=== PATIENT | female | born 1930 | race African-American/Black ===

== ENCOUNTER 2017-08-07 12:29 | Inpatient (IN) | payer MEDICARE, BC ==
[~2017-08-07] VITALS: Ht 165.1 cm; Wt 70.3 kg
[~2017-08-07 12:29] MED LIST: ALLO100T PO; AMLO1TAB64 PO; ASCO-339 PO; ASPI-1159 PO; ATEN50TA PO; CHOL500010 PO; DOCU-150 PO; FURO-151 PO; GLIM2TAB2 PO; HYDR500C18 PO; METFORMIN PO; OMEG-118 PO; POTA10TA11 PO; SIMV20TA6 PO; VITA400C19 PO; ZOLP10TA6 PO
[2017-08-07 13:37] LABS: BASOPHILS % 0.9 % (0.0-2.0); EOSINOPHILS % 1.2 % (0.0-5.0); HEMATOCRIT. 22.4 % (36.0-48.0); HEMOGLOBIN. 7.5 g/dL (12.0-16.0); LYMPHOCYTES % 10.3 % (20.0-50.0); MEAN CORPUSCULAR HEMOGLOBIN 30.4 pg (28.0-32.0); MEAN CORPUSCULAR VOLUME 90.6 fL (81.0-99.0); MEAN PLATELET VOLUME 8.3 fl (7.4-10.4); MONOCYTES % 8.3 % (2.0-8.0); NEUTROPHILS % 79.3 % (40.0-76.0); PLATELET 716 x1000/uL (130-400); RED BLOOD CELL COUNT 2.47 mill/uL (4.2-5.4); RED CELL DISTRIBUTION WIDTH 20.9 % (11.6-14.6)
[2017-08-07 13:47] LABS: PARTIAL THROMBOPLASTIN TIME 25.9 sec (23.4-31.0); PROTHROMBIN TIME 10.8 sec (9.4-11.6)
[2017-08-07 13:59] LABS: CARBON DIOXIDE 25 mEq/L (21-32); CHLORIDE 104 mEq/L (98-107); CREATINE KINASE 63 IU/L (26-192); CREATINE KINASE MB FRACTION 2.3 ng/mL (0.5-3.6); TOTAL IRON BINDING CAPACITY 199 ug/dL (250-450)
[2017-08-07 14:01] LABS: TROPONIN I 0.77 ng/mL (0.00-0.04)
[2017-08-07] MEDS ORDERED: FUROSEMIDE 40MG/4ML VIAL IVP ONE (14:15)
[2017-08-07] MEDS ORDERED: PANTOPRAZOLE SODIUM 40 MG/VIAL IV NR (17:30)
[2017-08-07 21:16] VITALS: BP 140/47
[2017-08-07 21:50] VITALS: BP 140/47
[2017-08-07] MEDS ORDERED: ZOLPIDEM TARTRATE 5MG TABLET PO PRN (22:30)
[2017-08-07] MEDS ORDERED: TRAMADOL 50MG TABLET PO PRN (22:30)
[2017-08-07] MEDS ORDERED: ATORVASTATIN CALCIUM 10MG TABLET PO SCH ×2 (22:30→23:07)
[2017-08-07] MEDS ORDERED: SODIUM CHLORIDE 0.9% 1,000 ML IV SCH (22:30)
[2017-08-07] MEDS ORDERED: MEDICATION NOT ON FORMULARY EA (Simvastatin 20 MG) PO SCH (23:00)
[2017-08-07 23:56] VITALS: BP 130/59
[2017-08-08] VITALS (10 sets, daily range): BP systolic 130–153; BP diastolic 55–65
[2017-08-08] MEDS ORDERED: NITR0.4T49 SL (00:04)
[2017-08-08] MEDS ORDERED: FAMOTIDINE PO (00:07)
[2017-08-08] MEDS ORDERED: NEBI5TAB3 PO (00:09)
[2017-08-08] MEDS ORDERED: METFORMIN HCL 500MG TABLET PO SCH (07:40)
[2017-08-08] MEDS ORDERED: POTASSIUM CHLORIDE 10MEQ TABLET SR PO SCH (09:00)
[2017-08-08] MEDS ORDERED: AMLODIPINE 5MG TABLET PO SCH ×2 (09:00)
[2017-08-08] MEDS ORDERED: ATENOLOL 50 MG TABLET PO SCH (09:00)
[2017-08-08] MEDS ORDERED: MEDICATION NOT ON FORMULARY EA (Potassium Chloride (Klor-Con 10) 10 MEQ) PO SCH (09:00)
[2017-08-08] MEDS ORDERED: FUROSEMIDE 40MG/4ML VIAL IVP SCH (09:00)
[2017-08-08] MEDS ORDERED: PANTOPRAZOLE SODIUM 40 MG/VIAL IV SCH (09:00)
[2017-08-08] MEDS ORDERED: FAMOTIDINE 20MG TABLET PO SCH ×2 (09:00)
[2017-08-08] MEDS ORDERED: LOSARTAN POTASSIUM 100 MG TABLET PO SCH (09:00)
[2017-08-08] MEDS ORDERED: BISACODYL 10MG SUPP PR NR (09:45)
[2017-08-08] MEDS ORDERED: DOCUSATE SODIUM 100MG CAPSULE PO SCH (09:45)
[2017-08-08 10:09] LABS: BASOPHILS % 0.6 % (0.0-2.0); EOSINOPHILS % 1.5 % (0.0-5.0); HEMATOCRIT. 33.2 % (36.0-48.0); HEMOGLOBIN. 11.2 g/dL (12.0-16.0); LYMPHOCYTES % 7.7 % (20.0-50.0); MEAN CORPUSCULAR HEMOGLOBIN 30.1 pg (28.0-32.0); MEAN CORPUSCULAR VOLUME 89.4 fL (81.0-99.0); MEAN PLATELET VOLUME 8.5 fl (7.4-10.4); MONOCYTES % 8.1 % (2.0-8.0); NEUTROPHILS % 82.1 % (40.0-76.0); PLATELET 589 x1000/uL (130-400); RED BLOOD CELL COUNT 3.72 mill/uL (4.2-5.4); RED CELL DISTRIBUTION WIDTH 18.7 % (11.6-14.6)
[2017-08-08 10:19] LABS: CARBON DIOXIDE 27 mEq/L (21-32); CHLORIDE 101 mEq/L (98-107)
== END 2017-08-08 15:00 | disposition home or self-care (01) | DRG 812 ==
LOC: ER 12:29 → EDBEDREQSVC 13:33 → EDBEDREQ 13:33 → 8WST 14:30 → EDBEDREQ 14:34 → ENRESERV 16:50
PROVIDERS: ADMIT Specialist; ATTEND Specialist
PROC: 30233N1 Transfusion of Nonautologous Red Blood Cells into Peripheral Vein, Percutaneous Approach (ICD-10-PCS; principal; 2017-08-07)
DX: D64.89 Other specified anemias (principal); E11.51 Type 2 diabetes mellitus with diabetic peripheral angiopathy without gangrene; I11.0 Hypertensive heart disease with heart failure; I50.9 Heart failure, unspecified; E78.5 Hyperlipidemia, unspecified; K21.9 Gastro-esophageal reflux disease without esophagitis; K59.00 Constipation, unspecified; M10.9 Gout, unspecified; Z90.710 Acquired absence of both cervix and uterus; Z98.42 Cataract extraction status, left eye; I25.5 Ischemic cardiomyopathy; Z90.49 Acquired absence of other specified parts of digestive tract; D47.3 Essential (hemorrhagic) thrombocythemia; I25.10 Atherosclerotic heart disease of native coronary artery without angina pectoris; Z79.84 Long term (current) use of oral hypoglycemic drugs
CPT/HCPCS: 36415; 71010; 80053; 82550; 82553; 82962; 83540; 83550; 83690; 83880; 84443; 84484; 85025; 85044; 85610; 85730; 86850; 86900; 86920; 93005; 96374; 99291; C9113; J1940; J7050; P9016

== ENCOUNTER 2017-10-05 15:51 | Observation (INO) | payer MEDICARE, BC ==
[~2017-10-05] VITALS: Ht 162.6 cm; Wt 71.8 kg
[~2017-10-05 15:51] MED LIST changes: +FAMOTIDINE PO; +NEBI5TAB3 PO; +NITR0.4T49 SL
[2017-10-05 16:15] VITALS: BP 137/55
[2017-10-05 17:00] VITALS: BP 137/55
[2017-10-05] MEDS ORDERED: SODIUM CHLORIDE 0.9% 1,000 ML IV SCH (18:00)
[2017-10-05] MEDS ORDERED: MEDICATION NOT ON FORMULARY EA (Zolpidem Tartrate 10 MG) PO SCH (18:15)
[2017-10-05] MEDS ORDERED: ZOLPIDEM TARTRATE 5MG TABLET PO PRN (18:15)
[2017-10-05] MEDS ORDERED: NITROGLYCERIN 0.4MG TABLET SL SL PRN (18:15)
[2017-10-05 19:48] LABS: BASOPHILS % 0.8 % (0.0-2.0); EOSINOPHILS % 1.8 % (0.0-5.0); HEMATOCRIT. 21.2 % (36.0-48.0); HEMOGLOBIN. 7.1 g/dL (12.0-16.0); LYMPHOCYTES % 10.4 % (20.0-50.0); MEAN CORPUSCULAR VOLUME 89.6 fL (81.0-99.0); MEAN PLATELET VOLUME 8.7 fl (7.4-10.4); MONOCYTES % 6.7 % (2.0-8.0); NEUTROPHILS % 80.3 % (40.0-76.0); PLATELET 536 x1000/uL (130-400); RED BLOOD CELL COUNT 2.36 mill/uL (4.2-5.4)
[2017-10-05 20:00] VITALS: BP 129/51
[2017-10-05] MEDS ORDERED: FAMOTIDINE 20MG TABLET PO NR (21:00)
[2017-10-05] MEDS: AMLODIPINE 5MG TABLET PO SCH (21:00)
[2017-10-05 21:43] VITALS: BP 123/51
[2017-10-05 22:15] VITALS: BP 125/52
[2017-10-05 23:19] VITALS: BP 115/43
[2017-10-06] VITALS: BP 142/50
[2017-10-06 00:45] VITALS: BP 142/50
[2017-10-06 04:00] VITALS: BP 131/57
[2017-10-06 08:15] VITALS: BP 132/59
[2017-10-06] MEDS ORDERED: FAMOTIDINE 20MG TABLET PO SCH (09:00)
[2017-10-06] MEDS ORDERED: ENOXAPARIN 40MG/0.4ML SYR SUBCUT SCH (09:00)
[2017-10-06] MEDS ORDERED: LOSARTAN POTASSIUM 50 MG TABLET PO SCH (09:00)
[2017-10-06] MEDS ORDERED: FUROSEMIDE 40MG TABLET PO SCH (09:00)
[2017-10-06] MEDS ORDERED: ASPIRIN 81MG EC TABLET PO SCH (09:00)
[2017-10-06] MEDS ORDERED: DOCUSATE SODIUM 100MG CAPSULE PO SCH (09:00)
[2017-10-06] MEDS ORDERED: ALLOPURINOL 100 MG TABLET PO SCH (09:00)
[2017-10-06] MEDS ORDERED: NEBIVOLOL HCL 5 MG TABLET PO SCH (09:00)
[2017-10-06] MEDS: AMLODIPINE 5MG TABLET PO SCH (09:43)
[2017-10-06] MEDS ORDERED: CLONIDINE 0.1MG TABLET PO PRN (09:45)
[2017-10-06 10:11] LABS: BASOPHILS % 0.9 % (0.0-2.0); EOSINOPHILS % 1.9 % (0.0-5.0); HEMATOCRIT. 25.4 % (36.0-48.0); LYMPHOCYTES % 11.3 % (20.0-50.0); MEAN CORPUSCULAR HEMOGLOBIN 30.4 pg (28.0-32.0); MEAN PLATELET VOLUME 8.5 fl (7.4-10.4); MONOCYTES % 7.1 % (2.0-8.0); NEUTROPHILS % 78.8 % (40.0-76.0); PLATELET 482 x1000/uL (130-400); RED BLOOD CELL COUNT 2.86 mill/uL (4.2-5.4); RED CELL DISTRIBUTION WIDTH 17.1 % (11.6-14.6)
[2017-10-06 10:19] LABS: HEMOGLOBIN. 8.7 g/dL (12.0-16.0)
[2017-10-06 11:29] LABS: CHLORIDE 105 mEq/L (98-107); TOTAL IRON BINDING CAPACITY 183 ug/dL (250-450)
[2017-10-06 12:00] VITALS: BP 132/59
[2017-10-06 12:10] VITALS: BP 140/49
== END 2017-10-06 13:40 | disposition home or self-care (01) ==
LOC: 6EST 15:51 → INTOOBSV 15:51
PROVIDERS: ADMIT Family Medicine Adult Medicine; ATTEND Family Medicine Adult Medicine
DX: D64.9 Anemia, unspecified (principal); I25.10 Atherosclerotic heart disease of native coronary artery without angina pectoris; M10.9 Gout, unspecified; I11.0 Hypertensive heart disease with heart failure; I50.9 Heart failure, unspecified; I73.9 Peripheral vascular disease, unspecified; E11.9 Type 2 diabetes mellitus without complications; I25.5 Ischemic cardiomyopathy; D47.3 Essential (hemorrhagic) thrombocythemia; E78.00 Pure hypercholesterolemia, unspecified; Z90.710 Acquired absence of both cervix and uterus
CPT/HCPCS: 36415; 36430; 80053; 83036; 83540; 83550; 85025; 86850; 86900; 86901; 86920; 93005; G0378; J7040; P9016; J7030